=== PATIENT | male | born 1975 | race Caucasian/White ===

== ENCOUNTER 2018-04-18 12:33 | Emergency (ER) | payer MEDICAID ==
[2018-04-18] MEDS ORDERED: Albuterol/Ipratropium Neb 3 ML AERS HHN ONE ×2 (13:06→13:13)
[2018-04-18] MEDS ORDERED: Dexamethasone Sodium Phos 4 mg/mL Vial INH STA (13:07)
[2018-04-18] MEDS ORDERED: Dexamethasone Sodium Phos 4 mg/mL Vial ONE (13:15)
--- NOTE | 2018-04-18 13:15 | ED Physician Chart ---
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 8 yrs was trying to chew some food by seven elevenand says he was not choking just having trouble swallowing secondary to not have good teeth pt states he is in amethadone clinic and trying to rehab and find housing and has a social work appt Allergies:: nka ED Review of Systems - Review of Systems General/Constitutional: No fever, No chills, No weight loss, No weakness, No diaphoresis, No edema, No loss of appetite Skin: No skin lesions, No rash, No bruising Head: No headache, No light-headedness Eyes: No loss of vision, No pain, No diplopia ENT: No earache, No nasal drainage, No sore throat, No tinnitus Neck: No neck pain, No swelling, No thyromegaly, No stiffness, No mass noted Cardio Vascular: No chest pain, No palpitations, No PND, No orthopnea, No edema Pulmonary: No SOB, No cough, No sputum, No wheezing GI: No nausea, No vomiting, No diarrhea, No pain, No melena, No hematochezia, No constipation, No hematemesis G/U: No dysuria, No frequency, No hematuria Musculoskeletal: No bone or joint pain, No back pain, No muscle pain Endocrine: No polyuria, No polydipsia Psychiatric: No prior psych history, No depression, No anxiety, No suicidal ideation Hematopoietic: No bruising, No lymphadenopathy Allergic/Immuno: No urticaria, No angioedema Neurological: No syncope, No focal symptoms, No weakness, No paresthesia, No headache, No seizure, No dizziness, No confusion, No vertigo ED Past Medical History - Past Medical History Past Medical History: Other (heroine abuse on methadone) ED Physical Exam - Physical Examination General/Constitutional: Awake, Alert Head: Atraumatic Skin: No rash Other Skin comments:: disheveled skin dirty ENMT: External ears, nose nl Neck: Nontender Respiratory: Nl effort/Exclusion Cardio Vascular: RRR GI: No organomegaly Extremities: No tenderness or effusion Neuro/Psych: Alert/oriented Other Neuro/Psych comments:: speech slurred Misc: Normal back ED Assessment - Assessment General Assessment: drug abuse on methadone some decreased pulse ox hx of copd ED Septic Shock - . Is Septic Shock (SBP<90, OR Lactate>4 mmol\L) present?: No ED Reassessment (Disposition) - Reassessment Reassessment Condition:: Improved - Diagnosis Diagnosis:: copd exacerbation drug abuse methadone - Patient Disposition Discharge/Transfer:: Home
== END 2018-04-18 15:20 | disposition home or self-care (01) ==
LOC: ER 12:33
DX: J44.1 Chronic obstructive pulmonary disease with (acute) exacerbation (principal); F11.10 Opioid abuse, uncomplicated; Z59.0 Homelessness
CPT/HCPCS: 94640; J1100; Z7502

== ENCOUNTER 2019-02-20 13:16 | Emergency (ER) | payer MEDICAID ==
[2019-02-20] MEDS ORDERED: Albuterol/Ipratropium Neb 3 ML AERS HHN ONE ×2 (13:48→13:56)
--- NOTE | 2019-02-20 14:30 | ED Physician Chart ---
ED Chief Complaint/HPI - Patient Information Date Seen:: 02/20/19 Time Seen:: 13:30 Chief Complaint:: Wheezing History of Present Illness:: onset x 3 hours of wheezing; pt has Hx of Asthma; pt ran out of his maintenance medications of Advair and Albuterol Inhaler; pt denies trauma, LOC, ALOC, AMS, H /As, S/T, E/As, syncope, NS, congestion, cough, neck pain, C/P, SOB, Abd. 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; pt denies any recent URI s/s Allergies:: Allergies Allergy/AdvReac Type Severity Reaction Status Date / Time ibuprofen Allergy Verified 11/01/18 13:09 Vitals:: Vital Signs - 8 hr 02/20/19 02/20/19 13:33 13:56 Temp 97.5 F HR 91 77 RR 16 18 BP 131/78 O2 Sat % 87 95 Historian:: Patient Review:: Nurse's Note Reviewed, Old Chart Reviewed ED Review of Systems - Review of Systems General/Constitutional: No fever, No chills, No weight loss, No weakness, No diaphoresis, No edema, No loss of appetite Skin: No skin lesions, No rash, No bruising Head: No headache, No light-headedness Eyes: No loss of vision, No pain, No diplopia ENT: No earache, No nasal drainage, No sore throat, No tinnitus Neck: No neck pain, No swelling, No thyromegaly, No stiffness, No mass noted Cardio Vascular: No chest pain, No palpitations, No PND, No orthopnea, No edema Pulmonary: No SOB, No cough, No sputum, Wheezing GI: No nausea, No vomiting, No diarrhea, No pain, No melena, No hematochezia, No constipation, No hematemesis G/U: No dysuria, No frequency, No hematuria, No nacturia Musculoskeletal: No bone or joint pain, No back pain, No muscle pain Endocrine: No polyuria, No polydipsia Psychiatric: No prior psych history, No depression, No anxiety, No suicidal ideation, No homicidal ideation, No auditory hallucination, No visual hallucination Hematopoietic: No bruising, No lymphadenopathy Allergic/Immuno: No urticaria, No angioedema Neurological: No syncope, No focal symptoms, No weakness, No paresthesia, No headache, No seizure, No dizziness, No confusion, No vertigo ED Past Medical History - Past Medical History Obtainable: Yes Past Medical History: Asthma/COPD Family History: None Social History: Smoker, Alcohol, No Drug Use, Single, Homeless Surgical History: None Psychiatricy History: None Medication: Reviewed Family Medical History - Family Member Mother History Unknown: Yes ED Physical Exam - Physical Examination General/Constitutional: Awake, Well-developed, well-nourished, Alert, No distress, GCS 15, Non-toxic appearing, Ambulatory Head: Atraumatic Eyes: Lids, conjuctiva normal, PERRL, EOMI Skin: Nl inspection, No rash, No skin lesions, No ecchymosis, Well hydrated, No lymphadenopathy Other Skin comments:: good turgor with MMM ENMT: External ears, nose nl, TM canals nl, Nasal exam nl, Lips, teeth, gums nl , Oropharynx nl, Tonsils nl Neck: Nontender, Full ROM w/o pain, No JVD, No nuchal rigidity, No bruit, No mass, No stridor Other Neck comments:: supple; no meningeal signs; no cervical tenderness; no bruits Respiratory: Nl effort/Exclusion Other Respiratory comments:: Lungs: + Expiratory Wheezes Cardio Vascular: RRR, No murmur, gallop, rubs, NL S1 S2, Carotid/Femoral/Distal pulses equal bilaterally GI: No tenderness/rebounding/guarding, No organomegaly, No hernia, Normal BS's, Nondistended, No mass/bruits, No McBurney tenderness, Rectum exam nl Other GI comments:: no pulsatile masses : No CVA tenderness Extremities: No tenderness or effusion, Full ROM, normal strength in all extremities, No edema, Normal digits & nails Neuro/Psych: Alert/oriented, DTR's symmetric, Normal sensory exam, Normal motor strength, Judgement/insight normal, Mood normal, Normal gait, No focal deficits Other Neuro/Psych comments:: no focal signs Misc: Normal back, No paraspinal tenderness ED Septic Shock - . Is Septic Shock (SBP<90, OR Lactate>4 mmol\L) present?: No - <6hrs of presentation: Vital Signs: Vital Signs - 8 hr 02/20/19 02/20/19 13:33 13:56 Temp 97.5 F HR 91 77 RR 16 18 BP 131/78 O2 Sat % 87 95 ED Reassessment (Disposition) - Reassessment Reassessment:: 1430: pt re-evaluated: pt has no s/s; pt's wheezing resolved; pt denies dyspnea ; PE: pt in NAD; no respiratory distress; Lungs: CTA; clear with good Breath Sounds bilaterally; pt tolerated po fluids well in ER; pt is asymptomatic upon discharge Reassessment Condition:: Improved - Diagnosis Diagnosis:: Asthma; Wheezing-resolved - Aftercare/Follow up Instructions Aftercare/Follow-Up Instructions:: Counseled pt regarding lab results/diagnosis & need follow up, Refer to Discharge Instructions, Counseled pt & family regarding lab results/diagnosis & need follow up Medication Prescribed:: Rx: Advair/Proventil Inhaler: take all medications as prescribed - Patient Disposition Discharge/Transfer:: Home Condition at Disposition:: Stable, Improved (RTER prn if existing s/s reoccur and/or get worse and/or any other new s/s occur; ACIs given for all above Dx; Refer to Roll Dough Divider/Occupational Therapist Aide ARMANDO; F/U with PMD in one day or prn; RTER prn if concerned)
== END 2019-02-20 14:30 | disposition home or self-care (01) ==
LOC: ER 13:16
DX: J45.909 Unspecified asthma, uncomplicated (principal); F17.200 Nicotine dependence, unspecified, uncomplicated; Z88.6 Allergy status to analgesic agent; Z59.0 Homelessness
CPT/HCPCS: 94640; Z7502